=== PATIENT | female | born 1960 | race Caucasian/White ===

== ENCOUNTER 2019-05-20 20:44 | Emergency (ER) | payer BC, OTHER ==
[2019-05-20 21:19] VITALS: BP 133/70; PULSE 70; TEMP 98.2; BMI 24.3
--- NOTE | 2019-05-20 21:22 | PDOC ---
Documentation entered by Khurram Perez SCRIBE, acting as scribe for Twan Shannon MD. Twan Shannon MD: This documentation has been prepared by the Ana olzano Xhesika, SCRIBE, under my direction and personally reviewed by me in its entirety. I confirm that the documentation accurately reflects all work, treatment, procedures, and medical decision making performed by me. History of Present Illness - General Chief Complaint: Wound Stated Complaint: RIGHT HAND WOUND Time Seen by Provider: 05/20/19 20:52 History Source: Patient Exam Limitations: No Limitations - History of Present Illness Initial Comments: 05/20/19 21:11 The patient is a 58 y/o female with a PMH of anxiety who presents to the ED for R thumb laceration since Monday05/17/19. The patient states she fell down the stairs, grabbed onto the wood railing causing the laceration. PAST MEDICAL HISTORY: anxiety. PAST SURGICAL HISTORY: no significant history FAMILY HISTORY: no pertinent history SOCIAL HISTORY: Pt lives with family and is employed. MEDICATIONS: reviewed ALLERGIES: As per nursing notes 05/20/19 21:21 Assessment and plan: This is a 58-year-old female who comes in with a wound that is 3 days old. Patient wanted to know if it could be sutured. I told patient because of the age of the wound that was unable to be sutured and just recommended bacitracin and a Band-Aid as needed. Patient wound at this time has no evidence of infection. Past History - Past Medical History Allergies/Adverse Reactions: Allergies Allergy/AdvReac Type Severity Reaction Status Date / Time No Known Allergies Allergy Verified 05/20/19 20:45 Home Medications: Ambulatory Orders NK [No Known Home Medication] 05/20/19 COPD: No Psychiatric Problems: Yes (ANXIETY) - Surgical History Cholecystectomy: Yes - Immunization History Immunization Up to Date: No - Psycho Social/Smoking Cessation Hx Smoking History: Never smoked Have you smoked in the past 12 months: No Information on smoking cessation initiated: No Hx Alcohol Use: (occasional) Substance Use Type: None Review of Systems - Review of Systems Able to Perform ROS?: Yes Comments:: 05/20/19 21:12 General: No fevers or chills, no weakness, no weight loss HEENT: No change in vision. No sore throat,. No ear pain CardioVascular: No chest pain or shortness of breath Respiratory:No cough, or wheezing. Gastrointestinal: no nausea, vomiting, diarrhea or constipation, No rectal bleeding Genitourinary: No dysuria, hematuria, or frequency Musculoskeletal: +R thumb laceration. Neurologic: No headache, vertigo, dizziness or loss of consciousness Psychiatric: nor depression Skin: No rashes or easy bruising Endocrine: no increased thirst or abnormal weight change Allergic: no skin or latex allergy All other systems reviewed and normal *Physical Exam - Vital Signs Last Vital Signs Temp Pulse Resp BP Pulse Ox 98.2 F 70 18 133/70 96 05/20/19 20:45 05/20/19 20:45 05/20/19 20:45 05/20/19 20:45 05/20/19 20:45 - Physical Exam 05/20/19 21:12 GENERAL: The patient is awake, alert, and fully oriented, in no acute distress. HEAD: Normal with no signs of trauma. EYES: Pupils equal, round and reactive to light, extraocular movements intact, sclera anicteric, conjunctiva clear. EXTREMITIES:+V-shaped laceration to the base of the R thumb. No discharge. No erythema. No increased warmth. Neurovascular intact. NEUROLOGICAL: Normal speech, normal gait. PSYCH: Normal mood, normal affect. SKIN: Warm, Dry, normal turgor Discharge - Discharge Information Problems reviewed: Yes Clinical Impression/Diagnosis: Laceration of right thumb Qualifiers: Encounter type: initial encounter Damage to nail status: without damage Foreign body presence: without foreign body Qualified Code(s): S61.011A - Laceration without foreign body of right thumb without damage to nail, initial encounter Condition: Stable Disposition: HOME - Admission No - Follow up/Referral Referrals: Mildred Watkins MD [Primary Care Provider] - - Patient Discharge Instructions Additional Instructions: Keep the thumb covered if you are working in a dirty environment otherwise you can leave it open to let it heal part of that skin well come off in the healing process. Monitor for signs of infections including increased pain, redness swelling Return to the emergency department immediately with ANY new, persistent or worsening symptoms. Continue any medications as previously prescribed by your physician. You should follow up with your primary doctor as soon as possible regarding today's emergency department visit. . Please make sure your doctor reviews the results of your emergency evaluation. Thank you for coming to the Emergency Department today for your care. It was a pleasure to see you today. Please note that your evaluation is INCOMPLETE until you follow-up with your doctor. - Post Discharge Activity
== END 2019-05-20 21:16 | disposition home or self-care (01) ==
LOC: FER 20:44
DX: S61.011A Laceration without foreign body of right thumb without damage to nail, initial encounter (principal); W26.9XXA Contact with unspecified sharp object(s), initial encounter; Y93.89 Activity, other specified; Y92.9 Unspecified place or not applicable; F41.9 Anxiety disorder, unspecified
CPT/HCPCS: 99282-25

== ENCOUNTER 2021-05-27 21:32 | Emergency (ER) | payer BC, OTHER ==
[2021-05-27 21:40] VITALS: BMI 24.2
[2021-05-27] MEDS ORDERED: PIPERACILLIN/TAZOB 3.375 GM 3.375 GM in DEXTROSE 5%-WATER - 50 ML IVPB ONE (21:53)
[2021-05-27] MEDS ORDERED: SODIUM CHLORIDE 1,000 ML IV ONE (21:56)
[2021-05-27] MEDS ORDERED: PIPERACILLIN/TAZOBACTAM 3.375 GM VIAL IVPB ONE (22:09)
[2021-05-27] MEDS ORDERED: morphine CARPU-JECT 4 MG/1 ML DISP.SYRIN IVPUSH ONE (22:10)
[2021-05-27] MEDS ORDERED: morphine SULFATE 4 MG/ML VIAL ONE (22:11)
[2021-05-27 22:34] LABS: ALBUMIN 4.3 g/dl (3.4-5.0); BILIRUBIN,TOTAL 0.9 mg/dl (0.2-1); CALCIUM 9.7 mg/dl (8.5-10); CREATININE 0.6 mg/dl (0.55-1.3)
[2021-05-27] MEDS ORDERED: HYDROmorphone HCL CARPU-JECT 1 MG/1 ML DISP.SYRIN IVPUSH ONE (23:12)
[2021-05-27 23:16] VITALS: BP 155/90; PULSE 71; TEMP 98.9
[2021-05-27] MEDS ORDERED: HYDROmorphone HCL/PF 1 MG/ML VIAL ONE (23:17)
[2021-05-27 23:21] LABS: EPITHELIAL CELLS FEW /hpf
[2021-05-27 23:46] LABS: BASO % 0.7 % (0-2.0); EOS % 2.5 % (0-4.5); HEMATOCRIT 38.4 % (32.4-45.2); HEMOGLOBIN 13.3 GM/dL (10.7-15.3); LYMPH % 40.6 % (8-40); MCHC 34.7 g/dl (32.0-36.0); MEAN CELL VOLUME 95.1 fl (80-96); MEAN PLT VOLUME 7.7 fl (7.5-11.1); MONO % 7.5 % (3.8-10.2); NEUT % 48.7 % (42.8-82.8); PLATELET COUNT 287 10^3/uL (134-434); RBC 4.04 M/mm3 (3.60-5.2); RDW 12.8 % (11.6-15.6); WHITE BLOOD COUNT 5.8 K/mm3 (4.0-10.0)
== END 2021-05-28 00:35 | disposition short-term general hospital (02) ==
LOC: FER 21:32
PROC: 3E033GC Introduction of Other Therapeutic Substance into Peripheral Vein, Percutaneous Approach (ICD-10-PCS; principal; 2021-05-27)
PROC: 3E033NZ Introduction of Analgesics, Hypnotics, Sedatives into Peripheral Vein, Percutaneous Approach (ICD-10-PCS; 2021-05-27)
PROC: 3E03329 Introduction of Other Anti-infective into Peripheral Vein, Percutaneous Approach (ICD-10-PCS; 2021-05-27)
PROC: 3E0337Z Introduction of Electrolytic and Water Balance Substance into Peripheral Vein, Percutaneous Approach (ICD-10-PCS; 2021-05-27)
DX: S69.80XA Other specified injuries of unspecified wrist, hand and finger(s), initial encounter (principal); W54.0XXA Bitten by dog, initial encounter
CPT/HCPCS: 36415; 80053; 81003; 81015; 85025; 99285-25

== ENCOUNTER 2023-06-20 10:00 | Emergency (ER) | payer BC, OTHER ==
[2023-06-20] MEDS ORDERED: ACETAMINOPHEN 325 MG TABLET (FP) ONE (11:05)
[2023-06-20] MEDS ORDERED: IBUPROFEN 400 MG TABLET (FP) PO ONE (11:05)
[2023-06-20] MEDS: IBUPROFEN 400 MG TABLET (FP) PO ONE (11:10)
[2023-06-20] MEDS: ACETAMINOPHEN 325 MG TABLET (FP) PO ONE (11:12)
[2023-06-20 11:30] VITALS: BP 154/84; PULSE 58; RESP 18; TEMP 98.1; BMI 25.4
== END 2023-06-20 12:08 | disposition home or self-care (01) ==
LOC: FER 10:00
DX: S92.354A Nondisplaced fracture of fifth metatarsal bone, right foot, initial encounter for closed fracture (principal); M79.671 Pain in right foot; X50.1XXA Overexertion from prolonged static or awkward postures, initial encounter
CPT/HCPCS: 73610-TC-RT-FY; 73630-TC-RT-FY; 99283-25